=== PATIENT | male | born 1995 | race Caucasian/White ===

== ENCOUNTER 2017-08-24 17:42 | Emergency (ER) | payer OTHER ==
[2017-08-24 18:00] VITALS: BP 136/81
--- NOTE | 2017-08-24 19:12 | UC ---
Respiratory Complaint HPI - HPI Summary HPI Summary: 21 y/o male presents to the urgent care c/o productive cough, LANDA, nasal congestion and sinus pain w/ green nasal discharge for the past 1 week. Pt reports symptoms started w/ common cold about 3 weeks ago. He has been taking Mucinex, Sudafe and Ibuprofen PO to alleviate symptoms w/o any improvement. Pt also states Hs of recurrent sinusitis. Pain is 4/10 w/ +PND. Pt denies SOB, fever, chest pain, abdominal pain. N/V/D - History of Current Complaint Chief Complaint: UCRespiratory Stated Complaint: COUGH Time Seen by Provider: 08/24/17 19:11 Hx Obtained From: Patient Onset/Duration: Gradual Onset, Lasting Weeks - 3 weeks, Worse Since - 1 week Timing: Constant Severity Initially: Mild Severity Currently: Moderate Pain Intensity: 4 Pain Scale Used: 0-10 Numeric Character: Cough: Productive, Sputum Description: - yellowish Aggravating Factors: Recumbent Position Alleviating Factors: OTC Meds Associated Signs And Symptoms: Positive: URI, Nasal Congestion, Sinus Discomfort Related History: Seasonal Allergies - Risk Factors Pulmonary Embolism Risk Factors: Negative Cardiac Risk Factors: Negative Pseudomonas Risk Factors: Negative Tuberculosis Risk Factors: Negative - Allergies/Home Medications Allergies/Adverse Reactions: Allergies Allergy/AdvReac Type Severity Reaction Status Date / Time Penicillins Allergy GI Upset Verified 08/24/17 18:00 Home Medications: Home Medications traZODone TAB* [Desyrel TAB*] 50 mg PO BEDTIME 08/24/17 [History Confirmed 08/24] PMH/Surg Hx/FS Hx/Imm Hx Previously Healthy: Yes Respiratory History: Asthma, Bronchitis - Surgical History Surgical History: None - Family History Known Family History: Positive: Cardiac Disease - Social History Occupation: Student Lives: With Family Alcohol Use: Occasionally Substance Use Type: None Smoking Status (MU): Never Smoked Tobacco - Immunization History Vaccination Up to Date: Yes Review of Systems Constitutional: Negative Skin: Negative Eyes: Negative ENT: Nasal Discharge, Sinus Congestion, Sinus Pain/Tenderness Respiratory: Cough Cardiovascular: Negative Gastrointestinal: Negative Genitourinary: Negative, Vaginal/Penile Itching Motor: Negative Neurovascular: Negative Musculoskeletal: Negative Neurological: Headache Psychological: Negative Is Patient Immunocompromised?: No All Other Systems Reviewed And Are Negative: Yes Physical Exam - Summary Physical Exam Summary: Vitals: reviewed General: Well developed, well-nourished male patient with NAD. Head and face: Normocephalic and atraumatic, Positive tenderness over the frontal and maxillary sinuses.. Eyes: PERRLA, EOMI x 2. Normal conjunctiva. No eye discharge. ENT: Ears and TM with normal limits. Nose: with yellowish discharge and erythematous mucosa. Pharynx with erythema, no exudate. +PND yellowish Neck: Supple, no JVD, no carotid bruits and no lymphadenopathy. Lungs: clear, no rales, no rhonchi, no wheezes. CVS: RRR, S1 and S2 present no murmurs or gallops appreciated. Abdomen: soft nontender with positive bowel sounds. Extremities: no edema noted. Neuro: WNL. Skin: warm and dry Triage Information Reviewed: Yes Vital Signs: Initial Vital Signs Temp 98.2 F 08/24/17 17:56 Pulse 79 08/24/17 17:56 Resp 18 08/24/17 17:56 BP 136/81 08/24/17 17:56 Pulse Ox 100 08/24/17 17:56 Diagnostic Evaluation - Laboratory O2 Sat by Pulse Oximetry: 100 Respiratory Course/Dx - Course Course Of Treatment: 21 y/o male presents to the urgent care c/o productive cough, LANDA, nasal congestion and sinus pain w/ green nasal discharge for the past 1 week. Pt reports symptoms started w/ common cold about 3 weeks ago. He has been taking Mucinex, Sudafe and Ibuprofen PO to alleviate symptoms w/o any improvement. Pt also states Hs of recurrent sinusitis. Pain is 4/10 w/ +PND. Pt denies SOB, fever, chest pain, abdominal pain. N/V/D. Hx obtained. Pt w/ acute bacterial sinusitis on examination. Pt with 3 weeks of symptoms getting worse. Pt PCN allergic. Rx Doxycycline PO and flonase nasal spray. First dose given at the clinic tonight. Discharge instructions explained to Pt. Advised to Return to the clinic or PCP if symptoms do not improve.Pt understood and agreed with plan of care. - Differential Dx/Diagnosis Differential Diagnosis/HQI/PQRI: Asthma, Bronchitis, Influenza, Sinusitis Provider Diagnoses: 1- Acute bacterial sinusitis Discharge - Sign-Out/Discharge Documenting (check all that apply): Discharge - Discharge Plan Condition: Stable Disposition: HOME Prescriptions: DOXYcycline CAP(*) [DOXYcycline 100MG CAP(*)] 100 mg PO BID #19 cap Fluticasone NASAL SPRAY 50MCG* [Flonase NASAL SPRAY 50MCG*] 2 spray BOTH NARES DAILY #1 btl Patient Education Materials: Sinusitis (ED) Referrals: [facility] [Outside] - If Needed Additional Instructions: 1- Please increase fluid intake and rest. take full course of antibiotic to avoid resistance 2-Use Flonase as directed to help drain fluid. Also buy saline drops to clear sinuses 3-Continu taking Sudafed and Mucinex PO to alleviates sinus congestion 4-Return to the clinic or PCP if symptoms do not improve for further management and treatment - Billing Disposition and Condition Condition: STABLE Disposition: HOME
[2017-08-24] MEDS ORDERED: DOXYcycline CAP(*) 100 MG PO ONE (19:23)
== END 2017-08-24 19:40 | disposition home or self-care (01) ==
LOC: UCEAST 17:42
DX: J01.90 Acute sinusitis, unspecified (principal); J45.909 Unspecified asthma, uncomplicated; Z88.0 Allergy status to penicillin
CPT/HCPCS: 99202; A9270-GY; G0463